=== PATIENT | male | born 1950 | race American Indian/Alaskan Native ===

== ENCOUNTER 2017-12-11 06:46 | Day surgery (SDC) | payer MEDICARE, BC ==
[2017-12-11] MEDS ORDERED: Propofol 10 mg/ml Inj (20 ML) ONE (09:29)
[2017-12-11] MEDS ORDERED: Lactated Ringer's 500 ML IV ONE (09:31)
--- NOTE | 2017-12-11 09:31 | CP.SDSHP ---
Same Day Surgery H & P - History Proposed Procedure: colonosocpy Pre-Op Diagnosis: screen - Previous Medical/Surgical History Cardiac: Hypertension - Allergies Allergies: Allergies shellfish derived Adverse Reaction (Verified 12/11/17 07:27) RASH - Physical Exam Vital Signs: Vital Signs 12/11/17 07:20 Temperature 97.6 F Pulse Rate 80 Respiratory 20 Rate Blood Pressure 144/78 O2 Sat by Pulse 98 Oximetry Mental Status: Alert & Oriented x3 Heart: WNL Lungs: WNL GI: WNL - {Optional Preform as Required} Abdomen: WNL - Impression Impression: screening Pt. Evaluated Today:Candidate for Anesthesia & Procedure: Yes - Date & Time Date: 12/11/17 Time: 09:20 Short Stay Discharge - Short Stay Discharge Admitting Diagnosis/Reason for Visit: SCREENING Disposition: HOME/ ROUTINE
[2017-12-11 11:04] VITALS: TEMP 97.2
[2017-12-11 14:37] VITALS: BP 147/88; PULSE 84; RESP 20; O2SAT 99
== END 2017-12-11 11:17 | disposition home or self-care (01) ==
LOC: C.ENDO 06:46
PROVIDERS: ATTEND Internal Medicine Gastroenterology
DX: Z12.11 Encounter for screening for malignant neoplasm of colon (principal); D12.4 Benign neoplasm of descending colon; D12.3 Benign neoplasm of transverse colon; K64.8 Other hemorrhoids; K57.30 Diverticulosis of large intestine without perforation or abscess without bleeding
CPT/HCPCS: 45385; 88305; J2001; J2704; J7120